=== PATIENT | female | born 1965 | race Caucasian/White ===

== ENCOUNTER 2025-09-06 07:32 | Day surgery (SDC) | payer OTHER ==
[~2025-09-06] VITALS: Ht 165.1 cm; Wt 55.9 kg
[~2025-09-06 07:32] MED LIST: ESTRADIOL1 EA10 TD; ESTRING1 EACH VAGINAL; FLUTICASONE-SA1 EAC4 INH; IBLOOD GLUCOSE TEST STRIP 1 EA TEST VI PRN; LACTATED RINGER'S 1,000 ML IV SCH; LIDOCAINE HCL 1% 5 ML SDV INJ ONE; MIDAZOLAM HCL 5 MG/5 ML VIAL IV PRN; MONTELUKAST SOD10 MG PO; ONDANSETRON ODT4 MG PO; fentaNYL citrate 100 MCG/2 ML VIAL IV PRN
[2025-09-06 07:46] VITALS: BP 134/75
--- NOTE | 2025-09-06 08:04 | NUR ---
CARLOZ WAITING WITH
--- NOTE | 2025-09-06 08:39 | NUR ---
WARM BLANKET ON. IV PATENT. GIVEN UPDATE ON WAIT.
[2025-09-06] MEDS ORDERED: fentaNYL citrate 100 MCG/2 ML VIAL ONE ×2 (08:44→09:34)
[2025-09-06] MEDS ORDERED: MIDAZOLAM HCL 5 MG/5 ML VIAL ONE ×2 (08:44→09:34)
[2025-09-06] MEDS ORDERED: LIDOCAINE HCL 4% 50 ML BTL ONE (08:47)
[2025-09-06 10:41] VITALS: BP 126/80
--- NOTE | 2025-09-06 10:46 | NUR ---
09/06/25 1046 Wendy aNvarro 1000 PT ARRIVED IN PACU SLEEPY. ABD SOFT. 1015 DR AT BEDSIDE. PT AWAKENS TO VERBAL STIMULI, THEN FALLS BACK TO SLEEP. 1030 RESTING. REU. 1040 PT AWAKE AND WANTING TO GO HOME. DC INSTRUCTIONS GIVEN. 1044 SITTING AT BEDSIDE GETTING DRESSED WITH STAND BY ASSIST.
--- NOTE | 2025-09-11 14:08 | OR ---
[facility] [address], [place] [address] Signed DATE OF OPERATION: 09/06/2025 SURGEON: Kirt Salgado MD PREOPERATIVE DIAGNOSES: 1. Presumptive diagnosis gastroparesis. 2. Colon screening. POSTOPERATIVE DIAGNOSES: 1. Essentially normal-appearing upper endoscopy, mild gastritis, no evidence of retained food or chronic inflammation. 2. Normal colon to cecum except for two small hyperplastic polyps of rectum. PROCEDURES: 1. Esophagogastroduodenoscopy with biopsy. 2. Total colonoscopy to cecum with cold morcellation polypectomy x2. ANESTHESIA: Intravenous sedation; fentanyl 225 mg, Versed 13 mg total. INDICATION: This 60-year-old white woman is a patient of Dr. Cat in [place] and was referred for surveillance colonoscopy. She underwent colonoscopy [address] Jose De Jesus toledo in [place] and was given a clinical diagnosis of gastroparesis after undergoing upper endoscopy as well. She had weight loss at that time. She was treated with Zofran and decreased fat diet. She recalls no actual tests of gastric emptying such as solid-food emptying study. She has no current symptoms of weight loss, gastric bloating or other particular issue. She currently has no colonic symptoms, specifically no bleeding, diarrhea, or constipation and denies family history of colon cancer. She is admitted at this time to undergo upper endoscopy and colonoscopy. She understands the risk of bleeding, infection, and perforation. FINDINGS: Upper endoscopy was essentially normal. There was no sign of chronic inflammation of the stomach. There was a small gastric polyp proximally, which was excised with cold morcellation technique. CLOtest was negative 30 minutes postprocedure. The flap valve was excellent. The duodenum appeared normal. Biopsies were obtained there to assess for celiac disease. On colonoscopy, the prep was quite good. Complete colonoscopy was undertaken of the Electronically Signed By: KIRT SALGADO MD 09/11/25 5363 PATIENT NAME: DEEPTHI MAC OPERATIVE REPORT DATE OF : 65 REPORT #: [id number] PHYSICIAN: KIRT SALGADO MD PCP: ENMANUEL CAT MD REPORT IS CONFIDENTIAL AND NOT TO BE RELEASED WITHOUT AUTHORIZATION [facility] [address], [place] [address] Signed cecum with full intubation of the cecum. There were two small hyperplastic appearing polyps of the rectum, both excised with cold morcellation technique. DESCRIPTION OF PROCEDURE: The patient was brought to the endoscopy suite, given topical lidocaine hypopharyngeal anesthesia. A bite block was placed and under full cardiopulmonary monitoring, upper endoscopy performed. The scope was introduced and vocal cords were found to be normal. The scope was advanced to the esophagus without problem into the stomach and through the normal-appearing pylorus. The duodenum appeared normal. Biopsies were obtained to assess for celiac disease. The scope was withdrawn and biopsies taken of the antrum for both CARITO and pathologic testing. Retroflexed view showed an optimal flap valve. There was a small proximal gastric polyp, which was excised with cold morcellation technique. CLOtest biopsies were obtained as well. Scope was withdrawn to the distal esophagus where biopsies were obtained and in the midesophagus as well. There was no evidence of Hu's epithelium, stricture, or neoplasm. The scope was removed. Plans were then made for colonoscopy. Additional sedation was given and digital rectal examination performed, which was normal. An Olympus video colonoscope was passed in the rectum and manipulated throughout the colon ultimately intubating the cecum itself. The ileocecal valve and appendiceal orifice were normal. The scope was withdrawn from that point and examination showed no sign of abnormality until the retroflexed view of the rectum, which showed two probably hyperplastic polyps, both were excised with cold morcellation technique. Narrow band imaging did not definitively distinguish hyperplastic versus adenomatous. The scope was straightened, withdrawn, and removed. The patient was taken to recovery room in good condition. CONCLUDING DIAGNOSES: 1. No clinical or endoscopic evidence of gastroparesis at this time. 2. Small hyperplastic polyps of rectum. PLAN: Consideration might be made for objective studies of gastroparesis specifically by solid-food emptying study. If the patient is asymptomatic from a gastrointestinal standpoint, it may be a moot point at this time. She takes no medication from a gastroparesis or gastritis perspective. We will see her back in the office in 4-6 weeks to review her pathology reports and further consider this. As regards to colon, repeat colonoscopy in 10 years is standard under current guidelines. We will await final pathology report regarding the polyps as hyperplastic versus adenomatous. Electronically Signed By: KIRT SALGADO MD 09/11/25 1408 PATIENT NAME: DEEPTHI MAC OPERATIVE REPORT DATE OF : 65 REPORT #: [id number] PHYSICIAN: KIRT SALGADO MD PCP: ENMANUEL CAT MD REPORT IS CONFIDENTIAL AND NOT TO BE RELEASED WITHOUT AUTHORIZATION [facility] [address] [place] [id number] Signed Kirt Salgado MD JM/MODL /[id number] cc: Benny Gonzalez Copies: ~ Electronically Signed By: KIRT SALGADO MD 09/11/25 1408 PATIENT NAME: DEEPTHI MAC OPERATIVE REPORT DATE OF : 65 REPORT #: [id number] PHYSICIAN: KIRT SALGADO MD PCP: ENMANUEL CAT MD REPORT IS CONFIDENTIAL AND NOT TO BE RELEASED WITHOUT AUTHORIZATION
== END 2025-09-06 10:52 | disposition home or self-care (01) ==
LOC: OPS 07:32 → DS 07:33 → OPS 08:30 → DS 14:00 → OPS 14:00
PROVIDERS: ATTEND Surgery
PROC: 0DB28ZX Excision of Middle Esophagus, Via Natural or Artificial Opening Endoscopic, Diagnostic (ICD-10-PCS; 2025-09-06)
PROC: 0DB38ZX Excision of Lower Esophagus, Via Natural or Artificial Opening Endoscopic, Diagnostic (ICD-10-PCS; 2025-09-06)
PROC: 0DBP8ZX Excision of Rectum, Via Natural or Artificial Opening Endoscopic, Diagnostic (ICD-10-PCS; 2025-09-06)
PROC: 0DB98ZX Excision of Duodenum, Via Natural or Artificial Opening Endoscopic, Diagnostic (ICD-10-PCS; principal; 2025-09-06 08:30)
PROC: 0DB68ZX Excision of Stomach, Via Natural or Artificial Opening Endoscopic, Diagnostic (ICD-10-PCS; 2025-09-06 08:30)
DX: Z12.11 Encounter for screening for malignant neoplasm of colon (principal); K62.1 Rectal polyp; K29.70 Gastritis, unspecified, without bleeding; K31.7 Polyp of stomach and duodenum; Z88.2 Allergy status to sulfonamides; Z88.8 Allergy status to other drugs, medicaments and biological substances
CPT/HCPCS: 99153; G0500; J2250; J3010; J7121